=== PATIENT | female | born 1945 | race Asian ===

== ENCOUNTER → 2024-01-24 11:18 | Outpatient (REF) | payer MEDICARE, OTHER, SELFPAY ==
[2024-01-24 15:55] LABS: % Basophils 0.8 % (0-2); % Eosinophils 2.8 % (0-6); % Immature Granulocytes 0.5 % (0-0.5); % Lymphocytes 26.1 % (20.5-51.1); % Monocytes 10.9 % (1.7-9.3); % Neutrophils 58.9 % (42.2-75.2); Absolute Basophils 0.1 10^3/uL (0-0.2); Absolute Eosinophils 0.2 10^3/uL (0-0.7); Absolute Lymphocytes 2.2 10^3/uL (1.2-3.4); Absolute Monocytes 0.9 10^3/uL (0.1-0.6); Absolute Neutrophils 4.9 10^3/uL (1.4-6.5); Hematocrit 40.7 % (37.0-47.0); Hemoglobin 13.7 g/dL (12.0-16.0); Mean Corp Hgb Conc. 33.7 g/dL (33.0-37.0); Mean Corpuscular Hgb 30.9 pg (27.0-31.0); Mean Corpuscular Volume 91.9 fL (81.0-99.0); Mean Platelet Volume 9.7 fL (7.4-10.4); Nucleated Red Blood Cells % 0 %; Platelet Count 304 10^3/uL (130-400); Red Blood Cell Count 4.43 10^6/uL (4.20-5.40); Red Cell Dist. Width 12.3 % (11.5-14.5); White Blood Cell Count 8.4 10^3/uL (4.8-10.8)
[2024-01-24 16:11] LABS: ALT (SGPT) 28 U/L (0-35); AST (SGOT) 30 U/L (14-36); Albumin 4.7 g/dl (3.5-5.0); Alkaline Phosphatase 44 U/L (38-126); Blood Urea Nitrogen 23 mg/dl (7-17); Carbon Dioxide 23 mmol/L (22-30); Chloride 107 mmol/L (98-107); Glucose 104 mg/dl (70-99); HDL Cholesterol 76 mg/dl; LDL Cholesterol, Calculated 89 mg/dl; Potassium 4.5 mmol/L (3.5-5.1); Sodium 139 mmol/L (135-145); Total Bilirubin 0.8 mg/dl (0.2-1.3); Total Cholesterol 190 mg/dl (50-199); Total Protein 7.9 g/dl (6.3-8.2); Triglyceride 128 mg/dl (10-149); Very Low Density Lipoprotein 25 mg/dl (0-30); eGFR > 60.00
[2024-01-24 16:31] LABS: Microalbumin, Random Urine 11.7 mg/dl (0.6-1.7)
[2024-01-24 17:23] LABS: Microalbumin/creatinine Ratio 18.9 mg/g
[2024-01-25 09:22] LABS: Glycohemoglobin (HgbA1c) 7.3 % (4.0-5.6)
== END ==
LOC: HWLAB 11:18
PROVIDERS: ATTENDING PHYSICIAN Nurse Practitioner
DX: E78.2 Mixed hyperlipidemia (principal); E11.319 Type 2 diabetes mellitus with unspecified diabetic retinopathy without macular edema; R80.9 Proteinuria, unspecified; E11.29 Type 2 diabetes mellitus with other diabetic kidney complication; Z12.31 Encounter for screening mammogram for malignant neoplasm of breast
CPT/HCPCS: 36415; 80053; 80061; 82043; 82570; 83036; 85025

== ENCOUNTER → 2024-07-25 11:41 | Outpatient (REF) | payer MEDICARE, OTHER, SELFPAY ==
[2024-07-25 15:54] LABS: ALT (SGPT) 27 U/L (0-35); AST (SGOT) 29 U/L (14-36); Albumin 4.3 g/dl (3.5-5.0); Alkaline Phosphatase 37 U/L (38-126); Blood Urea Nitrogen 28 mg/dl (7-17); Calcium 9.4 mg/dl (8.4-10.2); Carbon Dioxide 25 mmol/L (22-30); Chloride 106 mmol/L (98-107); Glucose 83 mg/dl (70-99); HDL Cholesterol 67 mg/dl; LDL Cholesterol, Calculated 89 mg/dl; Potassium 4.3 mmol/L (3.5-5.1); Sodium 145 mmol/L (135-145); Total Bilirubin 0.6 mg/dl (0.2-1.3); Total Cholesterol 183 mg/dl (50-199); Total Protein 7.4 g/dl (6.3-8.2); Triglyceride 136 mg/dl (10-149); Very Low Density Lipoprotein 27 mg/dl (0-30); eGFR > 60.00
[2024-07-25 16:19] LABS: Microalbumin, Random Urine 2.9 mg/dl (0.6-1.7); Microalbumin/creatinine Ratio 13.2 mg/g
[2024-07-26 09:27] LABS: Glycohemoglobin (HgbA1c) 6.9 % (4.0-5.6)
== END ==
LOC: HWLAB 11:41
DX: E11.29 Type 2 diabetes mellitus with other diabetic kidney complication (principal); E78.2 Mixed hyperlipidemia
CPT/HCPCS: 36415; 80053; 80061; 82043; 82570; 83036

== ENCOUNTER → 2024-12-15 12:18 | Outpatient (REF) | payer MEDICARE, OTHER, SELFPAY | LOC: HWRAD 12:18 | DX: J18.9 Pneumonia, unspecified organism (principal) | CPT/HCPCS: 71046 ==

== ENCOUNTER 2024-12-19 09:08 | Inpatient (IN) | payer MEDICARE, OTHER, SELFPAY ==
[2024-12-18 23:18] VITALS: BP 142/70
[2024-12-18 23:27] LABS: Glucose - Point of Care 47 mg/dl (70-99)
[2024-12-18 23:31] VITALS: BP 157/76
[2024-12-18 23:34] VITALS: BMI 22.5
[2024-12-18 23:56] LABS: Glucose - Point of Care 80 mg/dl (70-99)
[2024-12-18 23:57] LABS: % Basophils 0.4 % (0-2); % Eosinophils 0.4 % (0-6); % Immature Granulocytes 1.2 % (0-0.5); % Lymphocytes 14.1 % (20.5-51.1); % Neutrophils 76.9 % (42.2-75.2); Absolute Basophils 0.1 10^3/uL (0-0.2); Absolute Eosinophils 0.1 10^3/uL (0-0.7); Absolute Immature Granulocytes 0.1 10^3/uL (0-0.05); Absolute Lymphocytes 1.7 10^3/uL (1.2-3.4); Absolute Monocytes 0.8 10^3/uL (0.1-0.6); Hematocrit 37.5 % (37.0-47.0); Mean Corpuscular Hgb 27.7 pg (27.0-31.0); Mean Corpuscular Volume 86.6 fL (81.0-99.0); Nucleated Red Blood Cells % 0 %; Platelet Count 438 10^3/uL (130-400); Red Blood Cell Count 4.33 10^6/uL (4.20-5.40); Red Cell Dist. Width 13.2 % (11.5-14.5); White Blood Cell Count 11.8 10^3/uL (4.8-10.8)
--- NOTE | 2024-12-18 23:59 | ED.GENMED ---
History of Present Illness
General
Chief Complaint: Blood Sugar Problem
Time Seen by Provider: 12/18/24 23:26
History of Present Illness
History of Present Illness:
79-year-old female with history of diabetes presenting for concern of a low sugar. Patient reports prior to arrival she got very clammy and felt like her sugars were low. Her glucometer is currently broken. She takes glimepiride and metformin.
She notes that she took her medications this afternoon. She was recently diagnosed with pneumonia on , 4 days ago. She was started on levofloxacin. She notes since the diagnosis of pneumonia has had overall decreased p.o. intake. Reports
that she is still short of breath, has been coughing. Denies any chest pain. Denies any fevers. Denies any issues with her sugar being this low in the past. Denies abdominal pain. Denies additional acute medical complaints
Past History
Past History
ED Past Medical History: HTN and NIDDM
ED Past Surgical History: None
Social History
Tobacco: Non-smoker
Alcohol: None
Drug: None
Personal:
Living: with family
Phy Exam
Physical Exam
Physical Exam:
General: Well-appearing, no clinical signs of dehydration, nontoxic and in no acute distress
HEENT: protecting airway
Neck: appears supple
CV: Normal heart rate, regular rhythm
Resp: No accessory muscle use, no increased work of breathing
Abd: No distention
Extremities: No deformities, no swelling
Neuro: alert, no focal neurologic deficit
: deferred
Rectal: deferred
Psych: Normal affect
Skin: Intact
Course
Orders/Labs/Results
Orders:
Orders
12/18/24 23:27
Accucheck Once [Bedside Glucose Monitoring-ONCE] As Directed
12/18/24 23:35
Urinalysis Reflex To Culture Urgent
12/18/24 23:45
Complete Blood Count/With Diff Urgent
Comprehensive Metabolic Panel Urgent
12/19/24 00:01
CR Chest - 2 Views Urgent
Reason For Exam: recent diagnosis of pneumonia
12/19/24 00:31
EKG [Electrocardiogram (*1)] Urgent
Reason for Study: Vertigo / Dizzy
EKG- Treatment ONCE
Abnormal Lab Results
12/18/24 12/18/24 12/19/24
23:25 23:45 00:42
WBC 11.8 H 10^3/uL
(4.8-10.8)
MCHC 32.0 L g/dL
(33.0-37.0)
Plt Count 438 H 10^3/uL
(130-400)
Abs Immat Gran (auto) 0.1 H 10^3/uL
(0-0.05)
Absolute Neuts (auto) 9.0 H 10^3/uL
(1.4-6.5)
Absolute Monos (auto) 0.8 H 10^3/uL
(0.1-0.6)
Immature Gran % 1.2 H %
(0-0.5)
Neutrophils % 76.9 H %
(42.2-75.2)
Lymphocytes % 14.1 L %
(20.5-51.1)
BUN 32 H mg/dl
(7-17)
Total Protein 8.5 H g/dl
(6.3-8.2)
POC Glucose 47 L* mg/dl 116 H mg/dl
(70-99) (70-99)
12/18/24 23:45
12/18/24 23:45
Vital Signs
Initial and Last Documented VS:
Initial Vital Signs
Temp Pulse Resp BP Pulse Ox
97.4 F 100 22 142/70 100
12/18/24 23:18 12/18/24 23:18 12/18/24 23:18 12/18/24 23:18 12/18/24 23:18
Last Documented Vital Signs
Temp Pulse Resp BP Pulse Ox
97.4 F 75 20 112/64 100
12/18/24 23:18 12/19/24 01:00 12/19/24 01:00 12/19/24 01:00 12/19/24 01:00
MDM/Problems Addressed
MDM/Problems Addressed:
79-year-old female presenting to the emergency department for concern of hypoglycemia. Vital signs are normal. However [id number] glucose is low in the 40s.
On exam patient is awake, alert, able to tolerate p.o., so given juice. Patient denies taking any additional doses of her medications. Does note that she has had some decreased p.o. intake ever since she was diagnosed with pneumonia. Notes that
her pneumonia symptoms have been stable. No respiratory distress here. Patient afebrile, nontoxic. Hypoglycemia could also be secondary from underlying infection. Will continue to closely monitor patient's sugars, obtain laboratory analysis and
chest x-ray imaging.
01:15 -Labs show mild leukocytosis and chest x-ray is consistent with mild left lower lobe infiltrate. Sugars have remained stable. EKG obtained, shows concern for possible Mobitz type I block. Patient is asymptomatic without any dizziness or
lightheadedness. In the setting of persistent hypoglycemia, pneumonia, Mobitz type I, plan for admission
*Critical Care Note
Total Time (30-74mins, 75-104mins- exclusive of procedures): Not Applicable
ED Attending Note
-
Portions of this chart may have been created with voice recognition software.� Occasional wrong word or��sound alike� substitutions may have occurred due to the inherent limitations of voice recognition software.
Discharge Plan
Departure
Prescriptions:
No Action
(DME) Blood Glucose Test 1 EACH strip
1 ea MC TID Qty: 100 1RF
Rx Instructions:
E11.65
Contour Next EZ strips test before breakfast 2 hours after breakfast and 2 hours after dinner
(DME) lancets 1 EACH misc
1 ea MC TID Qty: 100 1RF
Rx Instructions:
E11.65
Contour next EZ lancets test as directed
losartan 50 mg Tablet
50 mg PO DAILY
glimepiride 2 mg Tablet
2 mg PO DAILY
levofloxacin 750 mg Tablet
750 mg PO DAILY
Patient Comments:
filled on 12/14/24. take one tablet by mouth every day for 10 days
dorzolamide 2 % Drops
1 drp OPHTHALMIC (EYE) BID
metformin 750 mg Tablet Extended Release 24 Hr
750 mg PO BID
Referrals:
Srinath Delong CRNP [Family Provider] -
Interventions
Interventions:
*Risk Screen - Suicide Last Done: 12/19/24 00:44
*General Assessment Last Done: 12/18/24 23:34
*Neglect/Abuse Screening Last Done: 12/19/24 00:44
*ED COVID-19 Vaccine History Last Done: 12/18/24 23:34
ED- Neurological Assessment Last Done: 12/19/24 00:54
Discharge Date and Time
Print Language: SENEGALESE
[2024-12-19] VITALS (9 sets, daily range): BP systolic 112–176; BP diastolic 63–84; BMI 21.9
[2024-12-19 00:08] LABS: ALT (SGPT) 20 U/L (0-35); AST (SGOT) 34 U/L (14-36); Albumin 4.5 g/dl (3.5-5.0); Alkaline Phosphatase 51 U/L (38-126); Blood Urea Nitrogen 32 mg/dl (7-17); Calcium 9.8 mg/dl (8.4-10.2); Carbon Dioxide 25 mmol/L (22-30); Chloride 105 mmol/L (98-107); Estimated Creatinine Clearance 32 ml/min; Glucose 70 mg/dl (70-99); Potassium 4.9 mmol/L (3.5-5.1); Sodium 143 mmol/L (135-145); Total Bilirubin 0.6 mg/dl (0.2-1.3); Total Protein 8.5 g/dl (6.3-8.2)
[2024-12-19 00:44] LABS: Glucose - Point of Care 116 mg/dl (70-99)
[2024-12-19 01:45] LABS: Glucose - Point of Care 89 mg/dl (70-99)
--- NOTE | 2024-12-19 02:04 | HPS.HSE ---
Family Physician
-
Family Physician: TANYA Arroyo
Chief Complaint
-
Clammy / Fatigue
History of Present Illness
Patient is an 79y F with PMH significant for hypertension and DM-II who presents to ED complaining of fatigue, clammy feeling and concern for low glucose. Patient reports recent respiratory illness with cough and chest congestion. She was seen
by PCP and had a CXR which showed LLL infiltrate / pneumonia. She was started on levofloxacin 750mg daily on 12/14. Patient states that her respiratory symptoms have been gradually improving.
Patient states that her appetite has been poor due to her illness and she has eaten very little.
In the evening Wednesday into Wednesday, patient woke three times feeling clammy and sweaty with low glucose. She drank some juice and treated her symptoms at home.
By the afternoon today, her glucose car to > 150 and she took her usual dose of glimepiride.
This evening she again had symptoms of sweaty feeling, cold / clammy, etc and presented to the ED for further evaluation.
In the ED, patient was noted to have glucose of 47. She received supplemental glucose and has been eating / drinking here in the ED.
Glucose increased to 116. Most recent glucose was 89.
Medical History
Past Medical History
Past Medical History: Reports Other
Additional Past Medical History:
Hypertension
DM-II
Past Surgical History: Reports Other
Additional Past Surgical History:
Cataracts
Social History
Tobacco: Former Smoker (Quit smoking 50 years ago.)
Alcohol: None
Drug: None
Family History
Family History: Other (Father: CAD, Colon Cancer Sister: Cervical Cancer Brother: CAD)
Allergies / Home Medications
Allergies reflects when Allergies were last updated in [facility].
Home Medications with original date entered in [employer]
Allergy/Medication List:
Allergies
Allergy/AdvReac Type Severity Reaction Status Date / Time
shellfish derived Allergy Itching Verified 12/18/24 23:34
Home Medications
blood sugar diagnostic (Blood Glucose Test strips) #100 strips 04/15/20
lancets 30 gauge #100 ea 04/15/20
dorzolamide 2 % eye drops 1 drp ophthalmic (eye) BID 12/19/24
glimepiride 2 mg tablet 2 mg PO DAILY 12/19/24
levofloxacin 750 mg tablet 750 mg PO DAILY 12/19/24
losartan 50 mg tablet 50 mg PO DAILY 12/19/24
metformin 750 mg tablet,extended release 24 hr 750 mg PO BID 12/19/24
Review of Systems
-
History Source: Patient
A 12 point ROS was completed and negative except as noted: Yes
Constitutional: Reports Fatigue; Denies Fever or Chills
EENT: Denies Sore Throat
Respiratory: Reports Cough; Denies Trouble Breathing
Cardiac: Denies Chest Pain or Palpitations
Abdomen/GI: Denies Abdominal Pain, Nausea, Vomiting or Diarrhea
: Denies Dysuria or Frequency
Musculoskeletal: Reports Joint Pain (b/l hand pain x months.); Denies Edema
Neurological: Denies Dizzy or Headache
Psych: Denies Depression or Anxiety
Physical Exam
Vital Signs
Vital Signs
Temp Pulse Resp BP Pulse Ox
97.4 F 88 18 112/64 97
12/18/24 23:18 12/19/24 01:30 12/19/24 01:30 12/19/24 01:00 12/19/24 01:30
Physical Exam
General: Other (79y F in no acute distress.)
HEENT: Moist mucous membranes and PERRLA
Respiratory: Other (Few coarse breath sounds over the L base.); No Wheezes or Rales
Cardiac: S1/S2 and Regular Rhythm; No Murmur
GI: Soft, Non Tender, Non Distended and Normal Bowel Sounds
Musculoskeletal: No Clubbing, No Cyanosis and No Edema
Neuro: AO x 3
Laboratory Results
-
12/18/24 23:45
12/18/24 23:45
Laboratory Results
Total Bilirubin 0.6 mg/dl (0.2-1.3) 12/18/24 23:45
AST 34 U/L (14-36) 12/18/24 23:45
ALT 20 U/L (0-35) 12/18/24 23:45
Alkaline Phosphatase 51 U/L (38-126) 12/18/24 23:45
Impression/Plan
-
A/P: Patient is an 79y F with PMH significant for hypertension and DM-II who presents to ED c/o hypoglycemia symptoms.
Hypoglycemia
DM-II
- Observe overnight for further evaluation and treatment.
- Likely combination of sulfonylurea and poor PO intake due to recent illness.
- Hold oral DM medications acutely.
- Supplemental dextrose as needed until glucose stabilizes off of sulfonylurea (last dose Wednesday afternoon).
- Follow glucose hourly until consistently > 100 then change to AC / HS.
LL Pneumonia
- Patient reports that symptoms are improving. Afebrile and non-toxic.
- s/p 5 days of Levofloxacin 750mg daily.
- Initial Rx for 10 days; however 5-7 days should be sufficient.
- Complete an additional 2 doses for total of 7 days and then discontinue.
- Follow for continued improvement or any new / worsening symptoms.
Benign Hypertension
- Stable. Continue losartan.
DVT prophylaxis: Lovenox
Code Status: Full
[2024-12-19] MEDS: D5/0.9% SODIUM CHLORIDE 1000 IV (02:05)
[2024-12-19 02:15] LABS: Urine Albumin Negative (Neg - Trace); Urine Bilirubin Negative (Negative); Urine Character Clear (Clear); Urine Color Yellow; Urine Glucose Negative (Negative); Urine Ketone Negative (Negative); Urine Leukocyte Negative (Negative); Urine Nitrite Negative (Negative); Urine Occult Blood Negative (Negative); Urine Urobilinogen Negative (Neg - 1+)
[2024-12-19 04:17] LABS: Glucose - Point of Care 40 mg/dl (70-99)
[2024-12-19 04:32] LABS: Glucose - Point of Care 69 mg/dl (70-99)
[2024-12-19 04:44] LABS: Hematocrit 37.3 % (37.0-47.0); Hemoglobin 12.1 g/dL (12.0-16.0); Mean Corp Hgb Conc. 32.4 g/dL (33.0-37.0); Mean Corpuscular Hgb 27.8 pg (27.0-31.0); Mean Corpuscular Volume 85.7 fL (81.0-99.0); Mean Platelet Volume 9.2 fL (7.4-10.4); Platelet Count 417 10^3/uL (130-400); Red Blood Cell Count 4.35 10^6/uL (4.20-5.40); White Blood Cell Count 13.3 10^3/uL (4.8-10.8)
[2024-12-19 04:48] LABS: Glucose - Point of Care 75 mg/dl (70-99)
[2024-12-19 05:06] LABS: Blood Urea Nitrogen 26 mg/dl (7-17); Calcium 9.8 mg/dl (8.4-10.2); Carbon Dioxide 25 mmol/L (22-30); Chloride 108 mmol/L (98-107); Estimated Creatinine Clearance 35 ml/min; Glucose 65 mg/dl (70-99); Potassium 4.5 mmol/L (3.5-5.1); Sodium 145 mmol/L (135-145); eGFR > 60.00
[2024-12-19 06:35] LABS: Glucose - Point of Care 67 mg/dl (70-99)
[2024-12-19 06:51] LABS: Glucose - Point of Care 62 mg/dl (70-99)
[2024-12-19 07:04] LABS: Glucose - Point of Care 64 mg/dl (70-99)
[2024-12-19 07:24] LABS: Glucose - Point of Care 67 mg/dl (70-99)
[2024-12-19 07:40] LABS: Glucose - Point of Care 76 mg/dl (70-99)
[2024-12-19 08:03] LABS: Glucose - Point of Care 71 mg/dl (70-99)
[2024-12-19] MEDS: NOVOLOG FLEXPEN-LOW RESISTANCE SC ×3 (08:11→16:05)
[2024-12-19] MEDS: TRUSOPT 2% OPHTHALMIC SOLUTION 1 DROP OPHTH ×2 (08:21→20:12)
[2024-12-19] MEDS: COZAAR 50 MG PO (08:21)
[2024-12-19] MEDS: LEVAQUIN 500 MG PO (08:22)
[2024-12-19 09:10] LABS: Glucose - Point of Care 74 mg/dl (70-99)
[2024-12-19 09:13] LABS: Glycohemoglobin (HgbA1c) 6.9 % (4.0-5.6)
[2024-12-19] MEDS: D10W 1000 IV ×2 (09:34→22:37)
[2024-12-19 10:05] LABS: Glucose - Point of Care 67 mg/dl (70-99)
[2024-12-19 10:23] LABS: Glucose - Point of Care 75 mg/dl (70-99)
[2024-12-19 11:01] LABS: Glucose - Point of Care 69 mg/dl (70-99)
[2024-12-19 11:18] LABS: Glucose - Point of Care 79 mg/dl (70-99)
[2024-12-19 12:06] LABS: Glucose - Point of Care 80 mg/dl (70-99)
[2024-12-19 13:03] LABS: Glucose - Point of Care 57 mg/dl (70-99)
[2024-12-19 13:23] LABS: Glucose - Point of Care 72 mg/dl (70-99)
[2024-12-19 14:02] LABS: Glucose - Point of Care 98 mg/dl (70-99)
--- NOTE | 2024-12-19 14:21 | W.PN.HOSP.TC ---
Today's Communication/Plan
-
abx
D10
monitor glucose levels
Assessment / Plan
Assessment / Plan
Physical Exam
General: Other (79y F in no acute distress.)
HEENT: Moist mucous membranes and PERRLA
Respiratory: Other (Few coarse breath sounds over the L base.); No Wheezes or Rales
Cardiac: S1/S2 and Regular Rhythm; No Murmur
GI: Soft, Non Tender, Non Distended and Normal Bowel Sounds
Musculoskeletal: No Clubbing, No Cyanosis and No Edema
Neuro: AO x 3
A/P: Patient is an 79y F with PMH significant for hypertension and DM-II who presents to ED c/o hypoglycemia symptoms.
Hypoglycemia
DM-II
- Observe overnight for further evaluation and treatment.
- Likely combination of sulfonylurea and poor PO intake due to recent illness.
- Hold oral DM medications acutely.
- Supplemental dextrose as needed until glucose stabilizes off of sulfonylurea (last dose Wednesday afternoon).
- Follow glucose hourly until consistently > 100 then change to AC / HS.
LL Pneumonia
- Patient reports that symptoms are improving. Afebrile and non-toxic.
- s/p 5 days of Levofloxacin 750mg daily.
- Initial Rx for 10 days; however 5-7 days should be sufficient.
- Complete an additional 2 doses for total of 7 days and then discontinue.
- Follow for continued improvement or any new / worsening symptoms.
Benign Hypertension
- Stable. Continue losartan.
DVT prophylaxis: Lovenox
Code Status: Full
Anticipated Discharge: Within 24 hours
Subjective/Interval History
-
Date of Service: December 19, 2024
No acute events
Objective Data
-
Labs:
Laboratory Results
12/19/24
04:26
WBC 13.3 H
Hgb 12.1
Hct 37.3
Plt Count 417 H
Sodium 145
Potassium 4.5
Chloride 108 H
Carbon Dioxide 25
BUN 26 H
Creatinine 0.9
Glucose 65 L
Calcium 9.8
Vital Signs:
Vital Signs
Temp Pulse Resp BP Pulse Ox
98.5 F 100 18 176/72 98
12/19/24 11:34 12/19/24 11:34 12/19/24 11:34 12/19/24 11:34 12/19/24 11:34
I&O
12/18/24 12/19/24 12/20/24
06:59 06:59 06:59
Intake Total 885 / 885
Balance 885 / 885
Review of Systems
-
History Source: Patient
All other systems: Not reviewed unless documented
Data Reviewed
-
Diagnostic Radiology: Report Reviewed by me
Labs: Labs Reviewed by me
[2024-12-19 15:03] LABS: Glucose - Point of Care 140 mg/dl (70-99)
[2024-12-19 16:04] LABS: Glucose - Point of Care 138 mg/dl (70-99)
[2024-12-19] MEDS: LOVENOX 40 MG SC (17:02)
[2024-12-19 17:09] LABS: Glucose - Point of Care 96 mg/dl (70-99)
[2024-12-19 18:07] LABS: Glucose - Point of Care 118 mg/dl (70-99)
[2024-12-19 19:00] LABS: Glucose - Point of Care 135 mg/dl (70-99)
[2024-12-19 20:21] LABS: Glucose - Point of Care 146 mg/dl (70-99)
[2024-12-19 21:45] LABS: Glucose - Point of Care 202 mg/dl (70-99)
--- NOTE | 2024-12-19 23:00 | PTCARENOTE ---
Patient received from ED. D10W infusing through IV in right AC. IV site infiltrated upon arrival to floor. IV removed and new INT placed by VAT RN. D10W resumed. Patient denies any pain or discomfort. Accu check 202. Patient aware to call RN if she
feels any signs of hypoglycemia. Patient verbalized a good understanding of teaching. Will continue to monitor.
[2024-12-20 03:42] LABS: Glucose - Point of Care 194 mg/dl (70-99)
[2024-12-20 05:18] VITALS: BMI 21.9
[2024-12-20 07:22] VITALS: BP 116/81
[2024-12-20 07:44] LABS: Glucose - Point of Care 247 mg/dl (70-99)
[2024-12-20] MEDS: LEVAQUIN 250 MG PO (09:03)
[2024-12-20] MEDS: COZAAR 50 MG PO (09:04)
[2024-12-20] MEDS: TRUSOPT 2% OPHTHALMIC SOLUTION 1 DROP OPHTH (09:06)
[2024-12-20] MEDS: NOVOLOG FLEXPEN-LOW RESISTANCE 2 UNITS SC (09:24)
[2024-12-20 09:29] LABS: Hematocrit 36.8 % (37.0-47.0); Hemoglobin 11.7 g/dL (12.0-16.0); Mean Corp Hgb Conc. 31.8 g/dL (33.0-37.0); Mean Corpuscular Hgb 27.6 pg (27.0-31.0); Mean Corpuscular Volume 86.8 fL (81.0-99.0); Mean Platelet Volume 9.3 fL (7.4-10.4); Platelet Count 418 10^3/uL (130-400); Red Blood Cell Count 4.24 10^6/uL (4.20-5.40); Red Cell Dist. Width 13.2 % (11.5-14.5); White Blood Cell Count 10.6 10^3/uL (4.8-10.8)
[2024-12-20 10:34] LABS: Blood Urea Nitrogen 15 mg/dl (7-17); Calcium 9.4 mg/dl (8.4-10.2); Carbon Dioxide 26 mmol/L (22-30); Chloride 105 mmol/L (98-107); Estimated Creatinine Clearance 40 ml/min; Glucose 180 mg/dl (70-99); Potassium 4.9 mmol/L (3.5-5.1); Sodium 142 mmol/L (135-145); eGFR > 60.00
[2024-12-20 11:33] LABS: Glucose - Point of Care 155 mg/dl (70-99)
[2024-12-20] MEDS: NOVOLOG FLEXPEN-LOW RESISTANCE 1 UNITS SC (11:36)
--- NOTE | 2024-12-20 11:49 | W.PN.HOSP.TC ---
Addendum entered and electronically signed by Christopher Hughes MD 12/21/24 17:07:
[id number]
Original Note:
Today's Communication/Plan
-
stop d10
if glucose remains stable of d10 can dc
Stop glimepiride indefinitely
can resume metformin
F/u PCP within the week
additional 2 days of abx
Assessment / Plan
Assessment / Plan
Physical Exam
General: Other (79y F in no acute distress.)
HEENT: Moist mucous membranes and PERRLA
Respiratory: Other (Few coarse breath sounds over the L base.); No Wheezes or Rales
Cardiac: S1/S2 and Regular Rhythm; No Murmur
GI: Soft, Non Tender, Non Distended and Normal Bowel Sounds
Musculoskeletal: No Clubbing, No Cyanosis and No Edema
Neuro: AO x 3
A/P: Patient is an 79y F with PMH significant for hypertension and DM-II who presents to ED c/o hypoglycemia symptoms.
Hypoglycemia
DM-II
- Likely combination of sulfonylurea and poor PO intake due to recent illness.
- Glucose levels >200 on D10; can dc
- IF glucose remains table off D10, clear for DC
-Stop glimepiride indefinitely
LL Pneumonia
- Patient reports that symptoms are improving. Afebrile and non-toxic.
- s/p 5 days of Levofloxacin 750mg daily.
- - Complete an additional 2 doses for total of 7 days and then discontinue.
-f/u pcp within the week - reports going to see PCP tomorrow
Benign Hypertension
- Stable. Continue losartan.
DVT prophylaxis: Lovenox
Code Status: Full
More than 30 minutes spent in discharge including
Final examination of the patient
Summarizing hospital stay
Instructions for continuing care to all relevant caregivers
Preparation of discharge records, prescriptions, and referral forms
Total time spent ( 35 in minutes):
Anticipated Discharge: Today
Subjective/Interval History
-
Date of Service: December 20, 2024
doing well, glucose levels in the 200s, dc D10
Objective Data
-
Labs:
Laboratory Results
12/20/24
06:55
WBC 10.6
Hgb 11.7 L
Hct 36.8 L
Plt Count 418 H
Sodium 142
Potassium 4.9
Chloride 105
Carbon Dioxide 26
BUN 15
Creatinine 0.8
Glucose 180 H
Calcium 9.4
Vital Signs:
Vital Signs
Temp Pulse Resp BP Pulse Ox
97.8 F 100 12 127/70 96
12/20/24 07:22 12/20/24 09:04 12/20/24 07:22 12/20/24 09:04 12/20/24 07:22
I&O
12/19/24 12/20/24 12/21/24
06:59 06:59 06:59
Intake Total 1365 / 1365
Balance 1365 / 1365
Review of Systems
-
History Source: Patient
All other systems: Not reviewed unless documented
Data Reviewed
-
Diagnostic Radiology: Report Reviewed by me
Labs: Labs Reviewed by me
--- NOTE | 2024-12-20 11:59 | W.DS.TRANS ---
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
-
Discharge Instructions:
Discharge Diagnosis/Procedures LL Pneumonia
Hypoglycemia
DM-II
Diet Diabetic, Carb Controlled,Low Fat,Low
Cholesterol
Activity As tolerated
Blood Work cbc and bmp within 1 week with pcp
Instructions:
Stand-Alone Forms:
Changes to Home Medications: Yes
Discharge Medications:
DC Medications w/original date entered in [employer]
albuterol sulfate 90 mcg/actuation aerosol inhaler 2 puff inhalation R [id number] PRN sob,wheezing 12/19/24
dorzolamide 2 % eye drops 1 drp BOTH EYES BID Eye Condition 12/19/24
losartan 50 mg tablet 50 mg PO DAILY Blood Pressure 12/19/24
metformin 750 mg tablet,extended release 24 hr 750 mg PO BID Diabetes 12/19/24
levofloxacin 750 mg tablet 750 mg PO DAILY Infection 2 days #2 tabs 12/20/24
Home Medication Changes
levofloxacin 750 mg tablet 750 mg PO DAILY Infection 2 days #2 tabs 12/20/24
Pending Results: No
--- NOTE | 2024-12-20 12:30 | CM ---
Met with patient to obtain information for assessment. Patient stated that she lives alone in a two story home with one step to enter. She has family nearby. She described herself as independent with her ADLs, personal care, bathing and dressing.
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 Her daughter transports her to her provider appointments and helps with the shopping. Patient stated that she has never had VN services. She has not been to a SNF.
Patient has a prescription plan and uses, [facility] [place] for all of her medications.
Patient's PCP is, Srinath MARTÍNEZ.
Plan: Case management will continue to follow and assist with discharge planning. Home with daughter.
[2024-12-20 12:37] VITALS: BP 159/88
[2024-12-20 15:05] VITALS: BP 137/71
== END 2024-12-20 16:38 | disposition home or self-care (01) | DRG 637 ==
LOC: 3 WEST ACU 09:08
PROVIDERS: ADMITTING PHYSICIAN Hospitalist; ATTENDING PHYSICIAN Internal Medicine; EMERGENCY PHYSICIAN Student in an Organized Health Care Education/Training Program
DX: E11.649 Type 2 diabetes mellitus with hypoglycemia without coma (principal); J18.9 Pneumonia, unspecified organism; I10 Essential (primary) hypertension; Z87.891 Personal history of nicotine dependence; Z60.2 Problems related to living alone
CPT/HCPCS: 71046; 80048; 80053; 81003; 82962; 83036; 85025; 85027; 93005; 96365; 96366; 96375; 99285

== ENCOUNTER → 2024-12-28 08:49 | Outpatient (REF) | payer MEDICARE, OTHER, SELFPAY ==
[2024-12-28 12:54] LABS: % Basophils 0.8 % (0-2); % Eosinophils 1.6 % (0-6); % Immature Granulocytes 0.6 % (0-0.5); % Monocytes 7.7 % (1.7-9.3); % Neutrophils 65.3 % (42.2-75.2); Absolute Basophils 0.1 10^3/uL (0-0.2); Absolute Eosinophils 0.2 10^3/uL (0-0.7); Absolute Immature Granulocytes 0.1 10^3/uL (0-0.05); Absolute Lymphocytes 2.2 10^3/uL (1.2-3.4); Absolute Monocytes 0.7 10^3/uL (0.1-0.6); Hematocrit 36.8 % (37.0-47.0); Hemoglobin 11.5 g/dL (12.0-16.0); Mean Corp Hgb Conc. 31.3 g/dL (33.0-37.0); Mean Corpuscular Hgb 27.6 pg (27.0-31.0); Mean Corpuscular Volume 88.5 fL (81.0-99.0); Mean Platelet Volume 9.7 fL (7.4-10.4); Nucleated Red Blood Cells % 0 %; Platelet Count 366 10^3/uL (130-400); Red Blood Cell Count 4.16 10^6/uL (4.20-5.40); Red Cell Dist. Width 13.3 % (11.5-14.5); White Blood Cell Count 9.3 10^3/uL (4.8-10.8)
[2024-12-28 12:59] LABS: ALT (SGPT) 15 U/L (0-35); AST (SGOT) 21 U/L (14-36); Albumin 4.4 g/dl (3.5-5.0); Alkaline Phosphatase 55 U/L (38-126); Blood Urea Nitrogen 33 mg/dl (7-17); Calcium 9.7 mg/dl (8.4-10.2); Carbon Dioxide 29 mmol/L (22-30); Chloride 103 mmol/L (98-107); Glucose 109 mg/dl (70-99); HDL Cholesterol 58 mg/dl; LDL Cholesterol, Calculated 79 mg/dl; Potassium 4.8 mmol/L (3.5-5.1); Sodium 142 mmol/L (135-145); Total Bilirubin 0.8 mg/dl (0.2-1.3); Total Cholesterol 162 mg/dl (50-199); Total Protein 7.8 g/dl (6.3-8.2); Triglyceride 127 mg/dl (10-149); Very Low Density Lipoprotein 25 mg/dl (0-30); eGFR > 60.00
[2024-12-28 13:56] LABS: Microalbumin, Random Urine 0.7 mg/dl (0.6-1.7)
[2024-12-28 13:57] LABS: Microalbumin/creatinine Ratio 5.3 mg/g
== END ==
LOC: HWLAB 08:49
DX: Z09 Encounter for follow-up examination after completed treatment for conditions other than malignant neoplasm (principal); J18.9 Pneumonia, unspecified organism; E11.649 Type 2 diabetes mellitus with hypoglycemia without coma; E11.29 Type 2 diabetes mellitus with other diabetic kidney complication; E78.2 Mixed hyperlipidemia
CPT/HCPCS: 36415; 80053; 80061; 82043; 82570; 85025

== ENCOUNTER → 2025-01-03 11:36 | Outpatient (REF) | payer MEDICARE, OTHER, SELFPAY | LOC: HWRAD 11:36 | DX: J18.9 Pneumonia, unspecified organism (principal) | CPT/HCPCS: 71046 ==

== ENCOUNTER → 2025-01-12 14:09 | Outpatient (REF) | payer MEDICARE, OTHER, SELFPAY | LOC: HWRAD 14:09 | DX: M54.12 Radiculopathy, cervical region (principal) | CPT/HCPCS: 72050 ==

== ENCOUNTER → 2025-01-17 10:12 | Outpatient (REF) | payer MEDICARE, OTHER, SELFPAY ==
[2025-01-17 11:58] LABS: Hemoglobin 10.8 g/dL (12.0-16.0); Mean Corp Hgb Conc. 31.8 g/dL (33.0-37.0); Mean Corpuscular Hgb 27.8 pg (27.0-31.0); Mean Corpuscular Volume 87.4 fL (81.0-99.0); Mean Platelet Volume 9.4 fL (7.4-10.4); Platelet Count 346 10^3/uL (130-400); Red Blood Cell Count 3.89 10^6/uL (4.20-5.40); Red Cell Dist. Width 13.3 % (11.5-14.5); White Blood Cell Count 10.1 10^3/uL (4.8-10.8)
[2025-01-17 12:07] LABS: Erythrocyte Sed Rate 68 mm/hour (0-20)
[2025-01-17 12:14] LABS: ALT (SGPT) 14 U/L (0-35); AST (SGOT) 18 U/L (14-36); Albumin 4.3 g/dl (3.5-5.0); Alkaline Phosphatase 41 U/L (38-126); Blood Urea Nitrogen 20 mg/dl (7-17); Calcium 9.4 mg/dl (8.4-10.2); Carbon Dioxide 23 mmol/L (22-30); Chloride 107 mmol/L (98-107); Glucose 179 mg/dl (70-99); Potassium 4.5 mmol/L (3.5-5.1); Sodium 142 mmol/L (135-145); Total Bilirubin 0.5 mg/dl (0.2-1.3); Total Protein 7.4 g/dl (6.3-8.2); eGFR > 60.00
[2025-01-17 12:25] LABS: Rheumatoid Agglutinin Less Than 10 IU (<10 IU)
[2025-01-17 12:26] LABS: % Basophils 0.9 % (0-2); % Eosinophils 1.1 % (0-6); % Immature Granulocytes 0.4 % (0-0.5); % Lymphocytes 19.3 % (20.5-51.1); % Monocytes 8.2 % (1.7-9.3); % Neutrophils 70.1 % (42.2-75.2); Absolute Basophils 0.1 10^3/uL (0-0.2); Absolute Eosinophils 0.1 10^3/uL (0-0.7); Absolute Monocytes 0.8 10^3/uL (0.1-0.6); Absolute Neutrophils 7.1 10^3/uL (1.4-6.5); Nucleated Red Blood Cells % 0 %
[2025-01-18 17:12] LABS: ANA, IgG Reflex to HEp-2 None Detected (None Detected)
[2025-01-19 10:47] LABS: Iron 38 ug/dl (37-170)
[2025-01-19 10:58] LABS: Percent Saturation 13 % (20-50); Total Iron Binding Capacity 290 ug/dl (265-497)
== END ==
LOC: HWLAB 10:12
DX: M54.12 Radiculopathy, cervical region (principal); M25.511 Pain in right shoulder; M25.512 Pain in left shoulder; M79.644 Pain in right finger(s); M79.645 Pain in left finger(s); R29.898 Other symptoms and signs involving the musculoskeletal system
CPT/HCPCS: 36415; 80053; 82728; 83540; 83550; 85025; 85652; 86038; 86140; 86430

== ENCOUNTER → 2025-02-12 11:19 | Outpatient (REF) | payer MEDICARE, OTHER, SELFPAY | LOC: HWRAD 11:19 | PROVIDERS: ATTENDING PHYSICIAN Student in an Organized Health Care Education/Training Program | DX: M79.641 Pain in right hand (principal); M79.642 Pain in left hand | CPT/HCPCS: 73110; 73130 ==

== ENCOUNTER → 2025-03-23 10:40 | Outpatient (REF) | payer MEDICARE, OTHER, SELFPAY | LOC: EMG 10:40 | PROVIDERS: ATTENDING PHYSICIAN Student in an Organized Health Care Education/Training Program | DX: G90.09 Other idiopathic peripheral autonomic neuropathy (principal); R20.0 Anesthesia of skin; G56.03 Carpal tunnel syndrome, bilateral upper limbs | CPT/HCPCS: 95886; 95911 ==

== ENCOUNTER → 2025-04-20 12:15 | Outpatient (REF) | payer MEDICARE, OTHER, SELFPAY | LOC: HWRAD 12:15 | DX: M25.562 Pain in left knee (principal); Z91.81 History of falling; Z74.09 Other reduced mobility | CPT/HCPCS: 73564 ==

== ENCOUNTER → 2025-05-23 10:20 | Outpatient (REF) | payer MEDICARE, OTHER, SELFPAY | LOC: RAD 10:20 | PROVIDERS: ATTENDING PHYSICIAN Student in an Organized Health Care Education/Training Program | DX: G62.9 Polyneuropathy, unspecified (principal); M25.641 Stiffness of right hand, not elsewhere classified; M79.641 Pain in right hand | CPT/HCPCS: 76882 ==

== ENCOUNTER → 2025-06-14 14:02 | Outpatient (REF) | payer OTHER, SELFPAY | LOC: HWRAD 14:02 | DX: M25.561 Pain in right knee (principal); M25.562 Pain in left knee; M25.552 Pain in left hip | CPT/HCPCS: 73502; 73564 ==

== ENCOUNTER → 2025-06-19 09:37 | Outpatient (REF) | payer MEDICARE, OTHER, SELFPAY ==
[2025-06-19 12:28] LABS: Hematocrit 36.2 % (37.0-47.0); Hemoglobin 11.4 g/dL (12.0-16.0); Mean Corp Hgb Conc. 31.5 g/dL (33.0-37.0); Mean Corpuscular Volume 85.8 fL (81.0-99.0); Nucleated Red Blood Cells % 0 %; Platelet Count 284 10^3/uL (130-400); Red Cell Dist. Width 14.4 % (11.5-14.5)
[2025-06-19 12:55] LABS: ALT (SGPT) 15 U/L (0-35); AST (SGOT) 18 U/L (14-36); Albumin 4.4 g/dl (3.5-5.0); Alkaline Phosphatase 45 U/L (38-126); Blood Urea Nitrogen 26 mg/dl (7-17); Calcium 9.5 mg/dl (8.4-10.2); Carbon Dioxide 24 mmol/L (22-30); Chloride 107 mmol/L (98-107); Glucose 128 mg/dl (70-99); Potassium 4.6 mmol/L (3.5-5.1); Sodium 140 mmol/L (135-145); Total Protein 7.7 g/dl (6.3-8.2); eGFR > 60.00
[2025-06-19 12:57] LABS: C-Reactive Protein 28.60 mg/L (0.0-10.00)
[2025-06-22 09:09] LABS: CCP Antibody IgG/IgA 11 Units (0-19)
== END ==
LOC: HWLAB 09:37
PROVIDERS: ATTENDING PHYSICIAN Student in an Organized Health Care Education/Training Program
DX: G62.9 Polyneuropathy, unspecified (principal); M25.641 Stiffness of right hand, not elsewhere classified; M25.642 Stiffness of left hand, not elsewhere classified; M79.641 Pain in right hand; M79.642 Pain in left hand
CPT/HCPCS: 36415; 80053; 85025; 85652; 86140; 86200